=== PATIENT | male | born 1980 | race Caucasian/White ===

== ENCOUNTER 2018-10-28 09:15 | Observation (INO) | payer OTHER ==
--- NOTE | 2018-10-16 10:37 | PREOPHP ---
DATE OF ADMISSION: 10/28/2018 The patient to have surgery with Dr. Vamsi aLra on 10/28/2018. REASON FOR CONSULTATION: Consultation requested by Dr. Vamsi Lara for medical evaluation and clearance of a 38-year-old gentleman about to undergo surgery. Thank you, Dr. Lara, for allowing us to participate in care of this patient. HISTORY OF PRESENT ILLNESS: Morgan Perez is a 38-year-old gentleman, issues with his back, is currently being admitted for correction of the above problem. In terms of his past medical and surgical history, the patient had a lipoma removed from his back and had inguinal hernias, right and left repaired. Other than that, he has had no other surgeries, no medical hospitalization. He has not broken any bones. ALLERGIES: HE IS NOT ALLERGIC TO ANY MEDICATIONS. MEDICATIONS: He is currently taking Lyrica 50 mg two t.i.d. or 300 mg a day and [place] 10/325 mg for his pain. SOCIAL HISTORY: The patient is , has 3 children. He does not smoke or drink alcohol, does drink coffee, is employed and has no difficulty sleeping at night. FAMILY HISTORY: Both parents are living. Father 72, has diabetes and hypertension. Mother is in good health and siblings are in good health as well. There is family history of diabetes and heart as well as cancer and hypertension. No strokes or thyroid. REVIEW OF SYSTEMS HEENT: Periodic migraine headaches. CARDIORESPIRATORY: Denies any chest pain. Gets occasional shortness of breath. GASTROINTESTINAL: No melena or hematemesis. GENITOURINARY: No urgency, frequency. MUSCULOSKELETAL: Positive for back pain. NEUROPSYCHIATRIC: Unremarkable. GENERAL HEALTH: As above. PHYSICAL EXAMINATION: VITAL SIGNS: The patient's blood pressure was 132/80, pulse was 68 and regular, respirations were 18, temperature 98.4. Height 5 feet 10 inches, weight 216.7 pounds. GENERAL: The patient was noted to be a well-developed, well-nourished male, alert and cooperative, in no apparent acute distress, oriented to time, place, and person. HEAD, EARS, EYES, NOSE AND THROAT: Head was atraumatic. Eyes: Pupils were equal, reactive to light and accommodation. Fundi were benign. Tympanic membranes were unremarkable. Nose was negative. Mouth was unremarkable. Fair oral hygiene was present. NECK: Supple without any rigidity. Trachea was midline. Thyroid was within normal limits. Neck veins are flat. Carotid pulses were equal. No bruits were heard. BACK: Unremarkable. CHEST: Symmetrical. BREASTS AND AXILLARY: Did not reveal any masses. LUNGS: Clear. HEART: PMI was 5th intercostal space at the midclavicular line. A regular sinus rhythm was noted. No significant murmurs, rubs, or gallops being elicited. ABDOMEN: Soft, good bowel sounds were noted. No significant organomegaly, masses, or tenderness. Scar from prior surgery being noted. GENITALIA: Normal male external genitalia. RECTAL AND PROSTATIC: Per PCP. EXTREMITIES: Did not reveal any clubbing, edema or cyanosis. Peripheral pulses were physiologic. SKIN: Moist and warm without any eruptions. No gross lymphadenopathy was noted. NEUROLOGIC: Grossly intact. IMPRESSION: 1. Left-sided L4-5 paracentral disk herniation with severe subarticular stenosis and L5 radiculopathy. 2. Chronic pain syndrome secondary to #1. 3. Stable health. DATA: Review of laboratory and other data revealed the following: The patient's chemistry panel including electrolytes, glucose, BUN, creatinine, calcium and uric acid, proteins, liver function test, magnesium, CBC, sed rate, UA, PT and PTT were normal. Patient's EKG revealed some nonspecific ST-T wave changes, otherwise was normal and patient's chest x-ray did not reveal any acute infiltrates, nor were there any acute cardiopulmonary changes noted. DISCUSSION: Dr. Lara, I see no contraindication in this patient undergoing current proposed surgery under desired form of anesthesia and feel he is a suitable candidate at this particular point in time. Should any medical problems arise during his stay at [facility], we would be more than happy to follow him along with you during his stay. Thank you again, Dr. Lara, for allowing us to participate in care of this patient. Dictated By: BLAIR TABOR MD SS/JULIANA Conf#: [id number] DID#: [id number] CC: VAMSI LARA MD;*EndCC* MTDD
[2018-10-28] VITALS (20 sets, daily range): BP systolic 104–155; BP diastolic 60–88; PULSE 62–96; RESP 10–19; Ht 180.3 cm; Wt 97.9 kg
[~2018-10-28] VITALS: Ht 180.3 cm; Wt 97.9 kg
[~2018-10-28 09:15] MED LIST: HYDR-3980 PO; PREG50CA PO
--- NOTE | 2018-10-28 11:43 | PREAC ---
Date/Time of Note Date/Time of Note DATE: 10/28/18 TIME: 11:41 Anesthesia Eval and Record Evaluation Time Pre-Procedure Interview DATE: 10/28/18 TIME: 11:41 Age 38 Sex male NPO: 8 hrs Preoperative diagnosis L4-5 HNP with radiculopathy Planned procedure Lumbar microdiscectomy L4-5 Past Medical History Past Medical History: Includes GI: Obesity Surgery & Anesthesia Issues No known issue Meds Anticoagulation: No Beta Yesica within 24 hr: No Reason Beta Yesica not given: Pt. not on B-Yesica Reported Medications Hydrocodone/Acetaminophen ([place] 10-325 Tablet) 1 Each Tablet, 1 EACH PO NEEDED, TAB 10/28/18 Pregabalin* (Lyrica*) 50 Mg Capsule, 100 MG PO TID, CAP 10/28/18 Meds reviewed: Yes Allergies Coded Allergies: No Known Allergy (Unverified , 10/28/18) Allergies Reviewed: Yes Labs/Studies Labs Reviewed: Reviewed by anesthesiologist test: N/A Pre-procedure Exam Last vitals Vital Signs Date Temp Pulse Resp B/P (MAP) Pulse Ox O2 O2 Flow FiO2 Time Delivery Rate 10/28/18 98.4 64 18 116/81 99 Room Air 10:12 (93) Airway: Adequate mouth opening Mallampati: Mallampati II Teeth: Normal Lung: Normal Heart: Normal ASA Physical Status ASA physical status: 2 Emergency: None Planned Anesthetic General/MAC: ETT Planned Pain Management Parenteral pain med Pre-operative Attestations Prior to commencing anesthesia and surgery, the patient was re-evaluated, there was verification of: *The patient's identity *The results of appropriate recent lab work and preoperative vital signs *The above evaluation not changing prior to induction *Anesthetic plan, risk benefits, alternative and complications discussed with patient/family; questions answered; patient/family understands, accepts and wishes to proceed. KAL RICO MD Oct 28, 2018 11:42
--- NOTE | 2018-10-28 11:55 | HPN ---
Date/Time of Note Date/Time of Note DATE: 10/28/18 TIME: 11:55 Interval H&P Admission Note Pt. seen H&P reviewed: No system changes VAMSI LARA MD Oct 28, 2018 11:55
[2018-10-28] MEDS ORDERED: BUPIVACAINE 0.5%/EPI (SDV) 30 ML INJ ONE (12:32)
[2018-10-28] MEDS ORDERED: POLYMYXIN/BACITRACIN 1L IRRIG ONE (12:32)
[2018-10-28] MEDS ORDERED: GELATIN SIZE 100 SPONGE ONE (12:32)
[2018-10-28] MEDS ORDERED: THROMBIN 5000 UNIT (RECOTHROM) VIAL ONE (12:32)
[2018-10-28] MEDS ORDERED: MEPERIDINE 100 MG INJ ONE (12:49)
[2018-10-28] MEDS ORDERED: GLYCOPYRROLATE 0.4 MG INJ ONE ×3 (12:49→15:07)
[2018-10-28] MEDS ORDERED: CEFAZOLIN 1 GM INJ ONE ×2 (12:49)
[2018-10-28] MEDS ORDERED: ROCURONIUM 50 MG INJ ONE ×2 (12:49→15:07)
[2018-10-28] MEDS ORDERED: LIDOCAINE 2% (SDV) 5 ML INJ ONE (12:49)
[2018-10-28] MEDS ORDERED: NEOSTIGMINE 3 MG/3 ML SYRINGE ONE ×2 (12:49→15:07)
[2018-10-28] MEDS ORDERED: PROPOFOL 20 ML ONE (12:49)
[2018-10-28] MEDS ORDERED: SUCCINYLCHOLINE CHLORIDE 100 MG/5 ML SYG IV ONE (12:49)
[2018-10-28] MEDS ORDERED: PROCHLORPERAZINE 10 MG TAB PO PRN (16:00)
[2018-10-28] MEDS ORDERED: NACL 0.9% 3 ML SYG IV SCH (16:00)
[2018-10-28] MEDS ORDERED: ACETAMINOPHEN 325 MG TAB PO PRN (16:00)
[2018-10-28] MEDS ORDERED: AL HYDROX/MG HYDROX/SIMETH 30 ML CUP PO PRN (16:00)
[2018-10-28] MEDS ORDERED: HYDROCODONE/APAP (5/325) TAB PO PRN (16:00)
[2018-10-28] MEDS ORDERED: NALOXONE (0.4 MG/ML) INJ IV PRN (16:00)
--- NOTE | 2018-10-28 16:01 | OPR ---
Date/Time of Note Date/Time of Note DATE: 10/28/18 TIME: 15:49 Operative Report Free Text/Dictation DATE OF OPERATION: 10/28/2018 PREOPERATIVE DIAGNOSES: 1. Left sided L4-L5 disk herniation with L5 radiculopathy POSTOPERATIVE DIAGNOSES: 1. Left sided L4-L5 disk herniation with L5 radiculopathy OPERATION PERFORMED: 1. Left L4-L5 microdiscectomy 2. Interpretation of neuromonitoring SURGEON: Vamsi Lara MD ANESTHESIA: General endotracheal ESTIMATED BLOOD LOSS: 45 mL SURGICAL INDICATION: The patient is a 38 year-old male who presents with a history of left lower extremity pain and weakness. He was found to have a disc herniation which correlated well with his symptoms. The patient had failed conservative treatment. Risks, benefits, and alternatives to microdiscectomy were explained to the patient and they wished to proceed. Risks explained included but were not exclusive of bleeding, infection, cauda equina syndrome, nerve injury, dural tear, iatrogenic instability, recurrent disc herniation, fracture, vascular injury, bowel injury, stroke, heart attack and pulmonary embolism. DESCRIPTION OF TECHNIQUE: The patient was identified in the preoperative area and taken to the operating room. Rapid induction of general endotracheal anesthesia was performed. The patient was given 2 g of cefazolin for prophylax is. The patient was then placed in the prone position on the Viktor frame on a Ivan flat top table with all prominences well padded. The back was prepped and draped in the usual sterile manner. A time out was held. Using a spinal needle and intraoperative fluoroscopy, the appropriate level was clearly identified (L4-L5). The skin was injected using 0.5% Marcaine with epinephrine. Longitudinal midline incision was then created using a 10 blade. Further dissection through soft tissue was performed using electrocautery down to the spinous processes. The dissection was taken down the left side of the lamina and over the facet joint capsule. A self-retaining retractor was applied. Again, intraoperative fluoroscopy confirmed the appropriate level (L4-5). The mi croscope was brought into use for microdissection. A small portion of the caudal aspect of the cephalad L4 lamina was resected using a high-speed bur. A series of Kerrison rongeurs were then used to resect the ligamentum flavum. The dura and traversing nerve root were both directly visualized. These were retracted gently in a medial direction. Immediately, the extruded disc fragment was noted. The pseudo anulus was incised using an 11 blade. Several loose fragments of disk were removed. These were removed back to a stable portion of the disk. The disk space was further pressurized using a using normal saline through a syringe to ensure that no loose fragments remained behind. Palpation with a ball-tip probe did not reveal any further stenosis. The traversing L5 nerve root was noted to be significantly decompressed. Meticulous attention was paid towards hemostasis using FloSeal as well as Gelfoam and thrombin. Care was taken to remove all FloSeal and Gelfoam prior to wound closure. The fascia was then closed using 1 Vicryl in an interrupted fashion. A medium hemovac was placed. Subcutaneous tissue was closed using 2-0 Vicryl in an interrupted fashion. The skin was closed using a running 4-0 Monocryl stitch. The wound was dressed using Dermabond and a 4x4 sterile gauze. The patient was returned to the supine position. He was extubated immediately postoperatively and taken to the recovery room in stable condition. COMPLICATIONS: None. Procedure Date: Oct 28, 2018 Preoperative Diagnosis 1. Left sided L4-L5 disk herniation with L5 radiculopathy Postoperative Diagnosis 1. Left sided L4-L5 disk herniation with L5 radiculopathy Operation/Procedure Performed 1. Left L4-L5 microdiscectomy 2. Interpretation of neuromonitoring Surgeon see signature line Staff Toxicologist NICO Marcus Anesthesia Type: general Estimated Blood Loss: 10 - 50 ml's Transfusion none Specimen L4-5 disk Grafts/Implants none Complications none Pt Condition Post Procedure: stable Disposition: PACU Procedure Description DESCRIPTION OF TECHNIQUE: The patient was identified in the preoperative area and taken to the operating room. Rapid induction of general endotracheal anesthesia was performed. The patient was given 2 g of cefazolin for prophylaxis. The patient was then placed in the prone position on the Viktor frame on a Ivan flat top table with all prominences well padded. The back was prepped and draped in the usual sterile manner. A time out was held. Using a spinal needle and intraoperative fluoroscopy, the appropriate level was clearly identified (L4-L5). The skin was injected using 0.5% Marcaine with epinephrine. Longitudinal midline incision was then created using a 10 blade. Further dissection through soft tissue was performed using electrocautery down to the spinous processes. The dissection was taken down the left side of the lamina and over the facet joint capsule. A self-retaining retractor was applied. Again, intraoperative fluoroscopy confirmed the appropriate level (L4-5). The microscope was brought into use for microdissection. A small portion of the caudal aspect of the cephalad L4 lamina was resected using a high-speed bur. A series of Kerrison rongeurs were then used to resect the ligamentum flavum. The dura and traversing nerve root were both directly visualized. These were retracted gently in a medial direction. Immediately, the extruded disc fragment was noted. The pseudo anulus was incised using an 11 blade. Several loose fragments of disk were removed. These were removed back to a stable portion of the disk. The disk space was further pressurized using a using normal saline through a syringe to ensure that no loose fragments remained behind. Palpation with a ball-tip probe did not reveal any further stenosis. The traversing L5 nerve root was noted to be significantly decompressed. Meticulous attention was paid towards hemostasis using FloSeal as well as Gelfoam and thrombin. Care was taken to remove all FloSeal and Gelfoam prior to wound closure. The fascia was then closed using 1 Vicryl in an interrupted fashion. A medium hemovac was placed. Subcutaneous tissue was closed using 2-0 Vicryl in an interrupted fashion. The skin was closed using a running 4-0 Monocryl stitch. The wound was dressed using Dermabond and a 4x4 sterile gauze. The patient was returned to the supine position. He was extubated immediately postoperatively and taken to the recovery room in stable condition. COMPLICATIONS: None. VAMSI LARA MD Oct 28, 2018 15:59
[2018-10-28] MEDS ORDERED: HYDROmorphONE 1 MG/5 ML IV SYRINGE IV ONE (16:08)
[2018-10-28] MEDS ORDERED: FENTAnyl 50 MCG/ML VIAL ONE (16:08)
[2018-10-28] MEDS ORDERED: hydrALAzine 20 MG INJ IV PRN (16:30)
[2018-10-28] MEDS ORDERED: DIPHENHYDRAMINE 50 MG INJ IV PRN (16:30)
[2018-10-28] MEDS ORDERED: METOCLOPRAMIDE 10 MG INJ IV PRN (16:30)
[2018-10-28] MEDS ORDERED: HYDROmorphONE 1 MG/5 ML IV SYRINGE IV PRN ×3 (16:30)
[2018-10-28] MEDS ORDERED: ONDANSETRON 4 MG INJ IV PRN (16:30)
[2018-10-28] MEDS ORDERED: LABETALOL HCL 20MG INJ IV PRN (16:30)
[2018-10-28] MEDS ORDERED: EPHEDrine 25 MG/5 ML SYG IV PRN (16:30)
[2018-10-28] MEDS ORDERED: MEPERIDINE 25 MG INJ IV PRN (16:30)
[2018-10-28] MEDS ORDERED: FENTAnyl 50 MCG/ML VIAL IV PRN ×3 (16:30)
[2018-10-28] MEDS ORDERED: MIDAZOLAM 1 MG/ML 2 ML INJ IV PRN (16:30)
--- NOTE | 2018-10-28 17:15 | PAC ---
Date/Time of Note Date/Time of Note DATE: 10/28/18 TIME: 17:15 Post-Anesthesia Notes Post-Anesthesia Note Last documented vital signs Vital Signs Date Temp Pulse Resp B/P (MAP) Pulse Ox O2 O2 Flow FiO2 Time Delivery Rate 10/28/18 82 16 141/76 100 Nasal 3.0 16:49 (97) Cannula 10/28/18 99.8 16:24 Activity: WNL Respiratory function: WNL Cardiovascular function: WNL Mental status: Baseline Pain reasonably controlled: Yes Hydration appropriate: Yes Nausea/Vomiting absent: Yes Comments BT: 99.1 KAL RICO MD Oct 28, 2018 17:15
[2018-10-28] MEDS: HYDROCODONE/APAP (5/325) TAB PO PRN ×2 (18:11→22:57)
[2018-10-28] MEDS: SOD CHLORIDE 0.45% 1,000 ML IV SCH (18:11)
[2018-10-28] MEDS: CEFAZOLIN 1 GM/50 ML (PMX) 50 ML IVPB SCH ×2 (18:27→23:55)
[2018-10-28] MEDS: HYDROmorphONE 0.5 MG/0.5 ML SYG IV PRN ×2 (20:12→23:55)
[2018-10-29 00:15] VITALS: BP 102/64; PULSE 58; RESP 18
[2018-10-29] MEDS: SOD CHLORIDE 0.45% 1,000 ML IV SCH ×2 (02:40→12:00)
[2018-10-29] MEDS: HYDROCODONE/APAP (5/325) TAB PO PRN ×3 (02:58→12:08)
[2018-10-29] MEDS: CEFAZOLIN 1 GM/50 ML (PMX) 50 ML IVPB SCH ×2 (05:44→11:57)
[2018-10-29] MEDS: HYDROmorphONE 0.5 MG/0.5 ML SYG IV PRN ×4 (05:44→15:46)
--- NOTE | 2018-10-29 06:44 | PN ---
Date/Time of Note Date/Time of Note DATE: 10/29/18 TIME: 06:41 Assessment/Plan VTE Prophylaxis Risk score (from Ns)>0 risk: 2 SCD applied (from Ns): Yes Pharmacological prophylaxis: heparin Pharm contraindication: low risk/ambulating Lines/Catheters IV Catheter Type (from Nrsg): Peripheral IV Urinary Cath still in place: No Assessment/Plan Problems: (1) S/P lumbar microdiscectomy Onset Date: ~ 10/28/2018 Status: Acute Comment: Patient has tolerated surgery without complications and is done nicely. There is anticipated for him to have good rehabilitation potential. Physical therapy will evaluate him and then he should be able to be discharged home. Please note the question is raised about whether or not he already has this prescription for analgesia?. (2) Lumbar disc disease with radiculopathy Status: Chronic Comment: Positive response to surgical intervention. (3) Chronic pain syndrome Status: Chronic Comment: Continue with Lyrica. Prescription for postoperative analgesia to be determined by operative surgeon? Result Diagram: 10/29/180 10/29/18439 Results 24hrs Laboratory Tests Test 10/29/18 04:40 Hemoglobin 12.8 L Hematocrit 38.3 L Sodium Level 138 Potassium Level 3.6 Chloride Level 100 Carbon Dioxide Level 29 Anion Gap 9 Blood Urea Nitrogen 9 Creatinine 0.82 Est Glomerular Filtrat Rate mL/min > 60 Glucose Level 114 Calcium Level 9.3 CC: VAMSI LARA MD ; Subjective 24 Hr Interval Summary Free Text/Dictation Patient reports that he is feeling better postop than he did preop. Specifically his area of numbness in the leg has improved. Waiting physical therapy Constitutional: no complaints (Fevers chills or sweats) Respiratory: no complaints (No cough no wheezing no shortness of breath) Cardiovascular: no complaints (Chest pain no palpitations no orthopnea no PND) Gastrointestinal: no complaints (Nausea vomiting cramping diarrhea or constipation) Genitourinary: no complaints (Reports able to void) Musculoskeletal: back pain Neurologic: other (Area of left leg numbness is improved already) Exam/Review of Systems Exam Vitals Vital Signs Date Temp Pulse Resp B/P (MAP) Pulse Ox O2 O2 Flow FiO2 Time Delivery Rate 10/29/18 98.7 58 18 102/64 97 00:15 (77) 10/28/18 Room Air 18:30 8/16/19 3.0 16:49 Intake and Output 10/28/18 10/28/18 10/29/18 1515:00 23:00 07:00 IntakeIntake Total 1670 ml 1430 ml OutputOutput Total 70 ml 1500 ml BalanceBalance 1600 ml -70 ml Constitutional: alert, oriented Respiratory: clear to auscultation, normal air movement Cardiovascular: regular rate and rhythm, nl pulses Gastrointestinal: soft, nl liver, spleen, non-tender Results Results 24hrs Laboratory Tests Test 10/29/18 04:40 Hemoglobin 12.8 L Hematocrit 38.3 L Sodium Level 138 Potassium Level 3.6 Chloride Level 100 Carbon Dioxide Level 29 Anion Gap 9 Blood Urea Nitrogen 9 Creatinine 0.82 Est Glomerular Filtrat Rate mL/min > 60 Glucose Level 114 Calcium Level 9.3 Medications Medication Current Medications Sodium Chloride 1,000 ml @ 100 mls/hr Q10H IV Last administered on 10/29/18at 02:40; Admin Dose 100 MLS/HR; Start 10/28/18 at 16:00 Acetaminophen/ Hydrocodone Bitart ([place] (5/325)) 1 tab Q4H PRN PO .PAIN 1-5; Start 10/28/18 at 16:00 Acetaminophen/ Hydrocodone Bitart ([place] (5/325)) 2 tab Q4H PRN PO .PAIN 6-10 Last administered on 10/29/18at 02:58; Admin Dose 2 TAB; Start 10/28/18 at 16:00 Cefazolin Sodium 50 ml @ 100 mls/hr Q6 IVPB Last administered on 10/29/18at 05:44; Admin Dose 100 MLS/HR; Start 10/28/18 at 18:00; Stop 10/29/18 at 12:29 Prochlorperazine (Compazine) 10 mg Q4H PRN PO NAUSEA/VOMITING; Start 10/28/18 at 16:00 Al Hydrox/Mg Hydrox/Simethicone (Mag-Al Plus) 15 ml Q4H PRN PO .CONSTIPATION; Start 10/28/18 at 16:00 Docusate Sodium (Colace) 100 mg BID PO ; Start 10/29/18 at 09:00 Acetaminophen (Tylenol Tab) 650 mg Q4H PRN PO TEMP GREATER THAN 101F OR SINGH; Start 10/28/18 at 16:00 IV Flush (NS 3 ml) 3 ml PER PROTOCOL IV ; Start 10/28/18 at 16:00 Naloxone HCl (Narcan) 0.2 mg Q2M PRN IV RR 8 BREATHS/MIN OR LESS; Start 10/28/18 at 16:00 Hydromorphone HCl (Dilaudid) 0.5 mg Q3H PRN IV SEVERE PAIN LEVEL 7-10 Last administered on 10/29/18at 05:44; Admin Dose 0.5 MG; Start 10/28/18 at 16:00 Pregabalin (Lyrica) 100 mg TID PO ; Start 10/29/18 at 09:00; Status NNEKA LEYVA MD Oct 29, 2018 06:44
[2018-10-29 07:54] VITALS: BP 113/77; PULSE 53; RESP 18
[2018-10-29] MEDS ORDERED: CEPASTAT LOZENGE MT PRN (08:00)
[2018-10-29] MEDS ORDERED: DOCUSATE SODIUM 100 MG CAP PO SCH (09:00)
[2018-10-29] MEDS: PREGABALIN 50 MG CAP PO SCH ×2 (09:41→12:48)
--- NOTE | 2018-10-29 10:18 | PDOCDIS ---
Discharge Instructions CONDITION [id number] Patient Condition: [id number] Good HOME CARE INSTRUCTIONS: [id number] Diet Instructions: [id number] Regular ACTIVITY: [id number] Activity Restrictions: [id number] Avoid heavy lifting Avoid Heavy Housework [id number] Bathing Restrictions: [id number] Shower FOLLOW UP/APPOINTMENTS Follow-up Plan Follow-up w/ Dr. Lara in 2 weeks VAMSI LARA MD Oct 29, 2018 10:18
[2018-10-29 15:10] VITALS: BP 125/78; PULSE 89; RESP 20
== END 2018-10-29 16:10 | disposition home or self-care (01) ==
LOC: SDS 09:15 → MS1 15:41
PROVIDERS: ADMIT Orthopaedic Surgery; ATTEND Orthopaedic Surgery
DX: M51.16 Intervertebral disc disorders with radiculopathy, lumbar region (principal); G89.4 Chronic pain syndrome
CPT/HCPCS: 63030; 72110; 80048; 85014; 85018; 88304; 97116; 97162; 97530; 99217; J0690; J1170; J2175; J2710; J3010; G0378